=== PATIENT | male | born 1970 | race Caucasian/White ===

== ENCOUNTER → 2020-04-02 08:32 | Outpatient (CLI) | payer OTHER, SELFPAY ==
[2020-04-02 10:35] LABS: ALB/GLOB Ratio 1.1 RATIO (0.9-2.4); AST(SGOT) 16 U/L (15-37); Alanine Aminotransfer ALT/SGPT 30 U/L (16-61); Albumin, Serum 3.8 g/dL (3.2-5.0); Alkaline Phosphatase 70 U/L (45-117); Anion Gap 5 (5-15); BUN 12 mg/dL (7-18); BUN/Creat Ratio 14.3 RATIO (10-20); Calcium,Total 8.5 mg/dL (8.5-10.1); Chloride 108 mmol/L (98-107); Creatinine, Serum 0.84 mg/dL (0.70-1.30); EST Glomerular Filtration Rate 103 mL/min (>60); Est Glom Filt Rate - Afr Amer 125 mL/min (>60); Globulin 3.5 g/dL (2.2-4.2); Glucose 91 mg/dL (74-106); Potassium 3.6 mmol/L (3.5-5.1); Protein, Total 7.3 g/dL (6.4-8.2); Sodium Level 140 mmol/L (136-145); Thyroid Stim Hormone (TSH) 0.97 uIU/mL (0.358-3.74)
[2020-04-02 10:38] LABS: Erythrocyte Sedimentation Rate 6 mm/hr (0-15)
[2020-04-02 10:41] LABS: Absolute Lymphocyte Count 1.13 X10^3/uL (0.83-4.51); Absolute Neutrophil Count 7.2 X10^3/uL (2.0-7.7); Basophil# 0.07 X10^3/uL; Basophil% 0.8 % (0-1); Eosinophil# 0.08 X10^3/uL; Eosinophils% 0.9 % (0-5); Hematocrit 46.6 % (40-54); Hemoglobin 15.1 g/dL (13.0-16.5); Lymphocyte # 1.13 X10^3/ul (4.0); Lymphocyte % 12.2 % (19-41); Mean Corp Hgb Conc 32.4 g/dL (32-36); Mean Corpuscular Hgb 30.6 pg (27.0-32.0); Mean Corpuscular Volume 94.5 fL (80-94); Mean Platelet Vol. 9.2 fl (6.2-12.0); Monocyte# 0.78 X10^3/uL; Monocyte% 8.4 % (0-10); NRBC Flagged by Analyzer 0 % (0-5); Neutrophil # 7.19 X10^3/uL (2.7-7.7); Neutrophil % 77.3 % (47-70); Platelet Count 370 K/mm3 (150-450); RBC Distribution Width CV 12.9 % (11.6-14.6); RBC Distribution Width SD 44.8 fl (35.1-43.9); Red Blood Count 4.93 M/mm3 (4.6-6.2); White Blood Count 9.3 K/mm3 (4.4-11.0)
[2020-04-02 11:28] LABS: Vitamin D,25 Hydroxy 15.1 ng/mL
== END ==
PROVIDERS: PCP Family Medicine; Referring Provider Family Medicine; Visit Provider Family Medicine
DX: R45.86 Emotional lability (principal)
CPT/HCPCS: 36415; 80053; 82306; 84443; 85025; 85652

== ENCOUNTER 2020-10-30 12:53 | Emergency (ER) | payer OTHER, SELFPAY ==
[2020-10-30 12:55] VITALS: BP 125/71; PULSE 88; RESP 18; TEMP 36.6; O2SAT 97; BMI 23.6
--- NOTE | 2020-10-30 13:42 | RAD_ITS ---
STUDY: X-RAY CHEST REASON FOR EXAM: Male, 50 years old. MENTAL HEALTH TECHNIQUE: Single AP portable view of the chest. COMPARISON: None. FINDINGS: There is hyperinflation of the lungs consistent with chronic obstructive lung disease (COPD). Scattered calcified granulomas. There is no demonstrated pleural abnormality. Normal size heart. Normal mediastinum and johnny. Normal visualized pulmonary arteries. Normal visualized aortic arch and descending thoracic aorta. Normal visualized thoracic spine. There has been resection of the anterior aspect of the left sixth rib anterolaterally. There is no demonstrated abnormality of the visualized soft tissue structures of the upper abdomen. RAD/Chest 1 View (Portable) IMPRESSION: Hyperinflation. Findings suggestive of resection of the anterior lateral portion of the left sixth rib. Electronically Signed: Raffi Small MD at 14:06 EDT , Service support ,
--- NOTE | 2020-10-30 13:57 | EKG12_ITS ---
Test Reason : MENTAL CLEARANCE Blood Pressure : / mmHG Vent. Rate : 056 BPM Atrial Rate : 056 BPM P-R Int : 122 ms QRS Dur : 088 ms QT Int : 434 ms P-R-T Axes : 056 053 059 degrees QTc Int : 418 ms Sinus bradycardia Otherwise normal ECG Confirmed by ALFREDO VAUGHN, LISSETTE ([id number]), index editor ALISA FARIA ([id number]) on 11/03/2020 9:43:42 AM Referred By: KEVON Confirmed By:HAIM FUENTES MD
[2020-10-30 14:51] LABS: Bacteria 0 SEEN /hpf (None Seen); Mucous, Urine 0 SEEN /hpf (<or=2+); Squamous Epithelial Cells - UA 0 SEEN /hpf (0-5); White Blood Cells 0 SEEN /hpf (0-5)
[2020-10-30 14:54] LABS: Color, Urine Yellow (Yellow); Glucose, Dipstick Normal (Normal); Ketone-Dipstick Negative (Negative); Leukocyte Esterase-Dipstick Negative /ul (Negative); Nitrite-Dipstick Negative (Negative); Occult Blood-Urine 25 /ul (Negative); Protein-Dipstick Negative (Negative); Specific Gravity, Urine 1.015 (1.002-1.030); Urine Bilirubin Dipstick Negative (Negative); Urine Clarity Clear (Clear); Urine Urobilinogen Normal (Normal)
[2020-10-30 15:05] LABS: Amphetamine Urine VISTA NEGATIVE (<1000 ng/mL); Barbiturate Urine VISTA NEGATIVE (< 200 ng/mL); Benzodiazepine Urine VISTA NEGATIVE (< 200 ng/mL); Cocaine Urine VISTA NEGATIVE (< 300 ng/mL); Ecstacy Urine VISTA NEGATIVE (< 500 ng/mL); Methadone Urine VISTA NEGATIVE (< 300 ng/mL); PCP Urine VISTA NEGATIVE (< 25 ng/mL); THC Urine VISTA NEGATIVE (< 50 ng/mL); Vista UDS pH Range 6
[2020-10-30 15:06] LABS: Red Blood Cells-Urine 0-5 SEEN /hpf (0-5)
[2020-10-30 15:16] LABS: Absolute Lymphocyte Count 1.02 X10^3/uL (0.83-4.51); Absolute Neutrophil Count 7.7 X10^3/uL (2.0-7.7); Basophil# 0.05 X10^3/uL; Basophil% 0.5 % (0-1); Eosinophil# 0.08 X10^3/uL; Eosinophils% 0.8 % (0-5); Hematocrit 43.8 % (40-54); Hemoglobin 14.2 g/dL (13.0-16.5); Lymphocyte # 1.02 X10^3/ul (0.83-4.51); Lymphocyte % 10.8 % (19-41); Mean Corp Hgb Conc 32.4 g/dL (32-36); Mean Corpuscular Hgb 29.6 pg (27.0-32.0); Mean Corpuscular Volume 91.3 fL (80-94); Mean Platelet Vol. 8.5 fl (6.2-12.0); Monocyte% 6.3 % (0-10); NRBC Flagged by Analyzer 0 % (0-5); Neutrophil % 81.3 % (47-70); Platelet Count 295 K/mm3 (150-450); RBC Distribution Width CV 12.4 % (11.6-14.6); RBC Distribution Width SD 41.6 fl (35.1-43.9); White Blood Count 9.5 K/mm3 (4.4-11.0)
--- NOTE | 2020-10-30 15:17 | EX.ED.DYSGE1 ---
HPI History of Present Illness Chief Complaint: Suicidal Detail of Chief Complaint: Depression Informant: patient and family Onset/Context/Timing Onset: Month(s) Context: Gradual Onset Timing: Continuous Current Severity: Mild Maximum Severity: Mild Narrative Narrative: 50-year-old gentleman history of bipolar disorder. Seeing a psychiatrist as an outpatient. He is currently on psychiatric medication states he is taken him with her not helping him. He is really started having problems since last February. It is progressively getting worse. Reportedly there is a lot of outside stressors on the patient. He is worried about keeping his job. He has never had a prior admission for this. He says he has thought of suicide but he has no plan and he has had no prior attempt before. Patient does not want to be admitted. Prior similar symptoms: Yes Recent Illness/Hospitalization: No PFSH PFS Medical History Anxiety Bipolar disorder Depression Home Medications escitalopram oxalate 10 mg PO DAILY 10/30/20 [History Last Taken Unknown] olanzapine 20 mg PO QHS 10/30/20 [History Last Taken Unknown] Allergy/AdvReac Type Severity Reaction Status Date / Time No Known Allergies Allergy Verified 10/30/20 12:55 Social History Smoking Status: Current every day smoker tobacco type: cigarettes ROS ROS ED ROS Narrative Patient denies any recent illness. Review of Systems ROS Unobtainable: Denies due to encephalopathy Constitutional Constitutional ED: Reports difficulty sleeping Eyes Eyes: Denies blindness ENT ENT ED: Denies bleeding gums Cardiovascular Cardiovascular: Denies abdominal pain Respiratory/Chest Respiratory/Chest: Denies chest congestion or cough Gastrointestinal Gastrointestinal: Denies dry heaves or dysphagia Genitourinary Genitourinary ED: Denies burning urination Musculoskeletal Musculoskeletal: Denies difficulty walking or extremity pain Integumentary Denies bleeding lesions or jaundice Neurologic Neurologic: Denies dizziness Psychiatric Psychiatric: Reports as per HPI, abnormal sleep pattern, anxiety, depression, difficulty concentrating and suicidal thoughts; Denies auditory hallucinations or hallucinations Endocrine Endocrinology: Denies excessive sweating, fatigue or flushing Hematologic/Lymphatic Hematologic/Lymphatic: Denies anemia Allergic/Immunologic Allergic/Immunologic ED: Denies lip swelling or mouth swelling EXAM Physical Exam Narrative Exam Narrative: Middle-age male. Vital signs stable afebrile. No distress. Normal exam. No smell of alcohol no signs of toxidrome. Currently is awake alert calm and cooperative. Exam is normal. He is medically cleared. Const Vital Signs: 10/30/20 12:55 10/30/20 16:00 10/30/20 17:00 Temperature 97.9 F Temperature Source Temporal Pulse Rate 88 Respiratory Rate 18 16 16 Blood Pressure 125/71 H Blood Pressure Mean 89 Pulse Ox 97 Oxygen Delivery Method Room Air Positive well nourished, well developed, alert, oriented x3 and no apparent distress; Negative for unkempt General Appearance ED: active, cooperative, comfortable and well developed; Negative for unkempt HEENT Reports normocephalic, head/scalp atraumatic and moist mucous membranes normocephalic, normal to inspection and atraumatic Eyes PERRL, EOMs intact bilaterally, conjunctivae normal and no scleral icterus Neck full ROM, no lymphadenopathy, supple, no meningeal signs and no JVD Chest Wall inspection of chest normal and palpation of chest normal Resp normal respiratory effort, normal air movement, no retractions, no use of accessory muscles and clear to auscultation bilaterally Cardio regular rate, regular rhythm, S1 normal heart sound, S2 normal heart sound, no murmurs, no rub, no gallops, no clicks and no JVD GI normal to inspection, nondistended, normoactive bowel sounds, soft to palpation, non-tender, non-distended and no masses Back/Spine no CVA tenderness Extremity normal to inspection, full ROM, normal capillary refill, no joint enlargement, no calf tenderness and no pedal edema Neuro oriented x3, CN's II-XII intact bilaterally, moves all extremities and no focal motor deficits Psych mental status grossly normal, thought process normal, cooperative, affect normal, speech normal, activity/motor behavior normal and denies hallucinations Appearance: grossly normal, appropriate and well kempt; Negative for unkempt Attitude: calm and engaged MDM MDM MDM Narrative Medical decision making narrative: Middle-age male history of bipolar disorder worsening depression in spite of meds. Having suicidal thoughts but no prior attempt for plan. Patient will be evaluated by our social welfare research worker. She and I will discuss a plan. He is medically cleared. Patient discussion with the social welfare research worker and family has been a self admit himself to no additional psychiatric facility. He is medically cleared. Lab Data Attestation: I reviewed the patient's lab results. Lab results narrative: White count normal at 9 hemoglobin 14. UA negative. Tox screen negative. Electrolytes normal. Glucose 183. UA negative. Labs: Laboratory Results - last 24 hr 10/30/20 10/30/20 10/30/20 13:19 13:19 14:50 WBC 9.5 RBC 4.80 Hgb 14.2 Hct 43.8 MCV 91.3 MCH 29.6 MCHC 32.4 RDW Std Deviation 41.6 RDW Coeff of Liu 12.4 Plt Count 295 MPV 8.5 Immature Gran % (Auto) 0.300 Neut % (Auto) 81.3 H Lymph % (Auto) 10.8 L [place]oke % (Auto) 6.3 Eos % (Auto) 0.8 Baso % (Auto) 0.5 Absolute Neuts (auto) 7.7 Absolute Lymphs (auto) 1.02 Nucleated RBC % 0 Sodium Potassium Chloride Carbon Dioxide Anion Gap BUN Creatinine Estim Creat Clear Calc Est GFR (MDRD) Af Amer Est GFR (MDRD) Non-Af BUN/Creatinine Ratio Glucose Calcium Urine Color Yellow Urine Clarity Clear Urine pH 7.0 Ur Specific [place] 1.015 Urine Protein Negative Urine Glucose (UA) Normal Urine Ketones Negative Urine Occult Blood 25 H Urine Nitrite Negative Urine Bilirubin Negative Urine Urobilinogen Normal Ur Leukocyte Esterase Negative Urine RBC 0-5 SEEN Urine WBC 0 SEEN Ur Squamous Epith Cells 0 SEEN Urine Bacteria 0 SEEN Urine Mucus 0 SEEN Urine Opiates Screen NEGATIVE Urine Methadone Screen NEGATIVE Ur Barbiturates Screen NEGATIVE Ur Phencyclidine Scrn NEGATIVE Ur Amphetamines Screen NEGATIVE U Methamphetamin-MDMA NEGATIVE U Benzodiazepines Scrn NEGATIVE Urine Cocaine Screen NEGATIVE U Cannabinoids Screen NEGATIVE Ur Drug Screen Comment Ethyl Alcohol 10/30/20 10/30/20 14:50 14:50 WBC RBC Hgb Hct MCV MCH MCHC RDW Std Deviation RDW Coeff of Liu Plt Count MPV Immature Gran % (Auto) Neut % (Auto) Lymph % (Auto) Cooke % (Auto) Eos % (Auto) Baso % (Auto) Absolute Neuts (auto) Absolute Lymphs (auto) Nucleated RBC % Sodium 138 Potassium 3.6 Chloride 104 Carbon Dioxide 26.0 Anion Gap 8 BUN 14 Creatinine 0.95 Estim Creat Clear Calc 93.03 Est GFR (MDRD) Af Amer 107 Est GFR (MDRD) Non-Af 89 BUN/Creatinine Ratio 14.7 Glucose 183 H Calcium 8.9 Urine Color Urine Clarity Urine pH Ur Specific [place] Urine Protein Urine Glucose (UA) Urine Ketones Urine Occult Blood Urine Nitrite Urine Bilirubin Urine Urobilinogen Ur Leukocyte Esterase Urine RBC Urine WBC Ur Squamous Epith Cells Urine Bacteria Urine Mucus Urine Opiates Screen Urine Methadone Screen Ur Barbiturates Screen Ur Phencyclidine Scrn Ur Amphetamines Screen U Methamphetamin-MDMA U Benzodiazepines Scrn Urine Cocaine Screen U Cannabinoids Screen Ur Drug Screen Comment Ethyl Alcohol < 3.0 Radiography Chest X-Ray - ED: 1 View, Read by ED Physician, Read by Radiologist, Heart, Lungs, Mediastinum, Bony Structures, No Acute Disease and Chronic Changes Diagnostic Testing: Radiology Impression Chest X-Ray 10/30/20 13:42 IMPRESSION: Hyperinflation. Findings suggestive of resection of the anterior lateral portion of the left sixth rib. Electronically Signed: Raffi Small MD at 14:06 EDT , Service support , Reviewed chest x-ray that was ordered by nursing. No acute abnormality. Portable 1 view. Normal cardiac silhouette and Discharge Plan Triage Chief Complaint: Suicidal Other Complaint: Mental Health ED Provider: Chetan Blanton Dx/Rx/DC Orders Clinical Impression: Depression, Suicidal ideation, Bipolar disorder Instructions: ED Bipolar Disorder Prescriptions: No Action olanzapine 20 mg Tablet 20 mg PO QHS RF: 0 escitalopram oxalate 10 mg Tablet 10 mg PO DAILY RF: 0 Primary Care Provider: Zurdo Phillips Referrals: Zurdo Phillips MD [Primary Care Provider] - As Needed Activity Restrictions/Additional Instructions: Follow-up with the psychiatric hospital for admission. Disposition Disposition: Psychiatric Hospital or Unit
[2020-10-30 15:37] LABS: Anion Gap 8 (5-15); BUN 14 mg/dL (7-18); BUN/Creat Ratio 14.7 RATIO (10-20); Calcium,Total 8.9 mg/dL (8.5-10.1); Chloride 104 mmol/L (98-107); Creatinine, Serum 0.95 mg/dL (0.70-1.30); EST Glomerular Filtration Rate 89 mL/min (>60); Est Glom Filt Rate - Afr Amer 107 mL/min (>60); Estimated Creatinine Clearance 93.03 ml/min; Glucose 183 mg/dL (74-106); Potassium 3.6 mmol/L (3.5-5.1); Sodium Level 138 mmol/L (136-145)
[2020-10-30 15:41] LABS: Alcohol, Blood (Medical)-Serum < 3.0 mg/dL
[2020-10-30 16:00] VITALS: RESP 16
[2020-10-30] MEDS: LORazepam 1 MG Tablet PO (16:36)
[2020-10-30 17:00] VITALS: RESP 16
[2020-10-30 17:28] VITALS: BP 120/70; PULSE 80; RESP 16; O2SAT 99
--- NOTE | 2020-10-30 17:30 | ED.RN ---
SELF TRANSPORTING FOR VOLUNTARY ADMISSION TO [facility].
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
--- NOTE | 2020-10-31 10:54 | CM.ED ---
Addendum entered by Soo Zhou 10/31/20 14:52: Spoke with Shanique at [facility]. Per Shanique, patient's appointment is 11/10/20 and does not have an earlier appointment date for patient. Patient has been added to the cancellation list. Original Note: SOCIAL WORK Follow up phone call made. Patient self-admitted to [facility] last evening. Per patient and 's request, call to [facility] to follow up regarding counseling services and patient's ER visit. Left message with this worker's call back information. Awaiting call back at this time. Sheron Zhou, NETWORK OPERATIONS CENTER ENGINEER, VP ACCOUNT DIRECTOR
== END 2020-10-30 17:31 ==
PROVIDERS: Emergency Provider Emergency Medicine; PCP Family Medicine
DX: R45.851 Suicidal ideations (principal); F31.9 Bipolar disorder, unspecified; F41.9 Anxiety disorder, unspecified; Z79.899 Other long term (current) drug therapy; F17.210 Nicotine dependence, cigarettes, uncomplicated
CPT/HCPCS: 36415; 71045; 80048; 80307; 81001; 82077; 85025; 87426; 93005; 99283

== ENCOUNTER → 2021-01-01 14:18 | Outpatient (CLI) | payer OTHER, SELFPAY ==
--- NOTE | 2021-01-01 14:21 | RAD_ITS ---
STUDY: X-RAY - CERVICAL SPINE REASON FOR EXAM: Male, 50 years old. NECK PAIN TECHNIQUE: 6 view(s) of the cervical spine were obtained. COMPARISON: None FINDINGS: Normal anterior atlantoaxial articulation. The odontoid process is obscured by the overlying hard palate on the open mouth view. Therefore, it is not fully evaluated by plain film. No movement on the flexion or extension views. There is straightening of the normal cervical lordosis. There is C4-5 and C5-6 endplate spondylosis. There is C4-5 and C5-6 degenerative disc disease with multilevel disc space narrowing. Normal visualized intervertebral neuroforamina. The soft tissue structures are unremarkable. RAD/Cerv Spine Obl/Flex/Ext Comp IMPRESSION: The odontoid process is obscured by the overlying hard palate on the open mouth view. Therefore, it is not fully evaluated by plain film. There is mild straightening of the normal cervical lordosis. This can suggest neck strain. Electronically Signed: Beto Hernandez MD at 13:40 EDT , Service support ,
--- NOTE | 2021-01-01 14:21 | RAD_ITS ---
STUDY: XR Shoulder Min 2 Views REASON FOR EXAM: Male, 50 years old. PAIN TECHNIQUE: XR Shoulder Min 2 Views COMPARISON: None. FINDINGS: Normal glenohumeral articulation. Normal acromioclavicular joint. Normal acromion. Normal humeral head and visualized proximal humerus. The soft tissue structures are unremarkable. Normal visualized pulmonary apex. RAD/Shoulder min 2 Views IMPRESSION: There are no acute findings of the shoulder. Electronically Signed: Beto Hernandez MD at 10:14 EDT , Service support ,
== END ==
PROVIDERS: PCP Family Medicine; Referring Provider Family Medicine; Visit Provider Family Medicine
DX: M25.511 Pain in right shoulder (principal); M54.2 Cervicalgia
CPT/HCPCS: 72052; 73030

== ENCOUNTER → 2024-07-02 | Outpatient (CLI) | payer OTHER, SELFPAY ==
--- NOTE | 2024-07-02 14:39 | RAD_ITS ---
PROCEDURE: HIPS B/L MIN 2 VIEWS W/ PELVIS 07/02/2024 REASON FOR EXAM: L HIP PAIN TECHNIQUE: 2 views of each hip. AP Pelvis. COMPARISON: None. FINDINGS: Pelvic rim is unremarkable. No fracture is identified. RIGHT HIP: No acute fracture. Normal alignment. Soft tissues are unremarkable. LEFT HIP: No acute fracture. Normal alignment. Soft tissues are unremarkable. RAD/Hips B/L min 2 views w/ Pelvis IMPRESSION: NEGATIVE BILATERAL HIP SERIES. Reading Location: [facility]
--- NOTE | 2024-07-02 14:39 | RAD_ITS ---
PROCEDURE: LUMBAR SPINE 2 OR 3 VIEWS 07/02/2024 REASON FOR EXAM: L HIP PAIN TECHNIQUE: 3 view(s) of the lumbar spine FINDINGS: No findings of acute lumbar spine fracture. There is degenerative disc disease most notable at L3-L4 at L5-S1. 2 mm retrolisthesis of L3-L4. If persistent concern, consider lumbar spine MRI RAD/Lumbar Spine 2 or 3 Views IMPRESSION: Multilevel degenerative disc disease. If persistent concern, consider lumbar s pine MRI Reading Location: [id number]
[2024-07-02 18:08] LABS: Hematocrit 44.7 % (40-54); Hemoglobin 14.9 g/dL (13.0-16.5); Mean Corp Hgb Conc 33.3 g/dL (32-36); Mean Corpuscular Hgb 30.8 pg (27.0-32.0); Mean Corpuscular Volume 92.4 fL (80-94); Mean Platelet Vol. 9.4 fl (6.2-12.0); Platelet Count 338 K/mm3 (150-450); RBC Distribution Width CV 13.7 % (11.6-14.6); RBC Distribution Width SD 46.8 fl (35.1-43.9); Red Blood Count 4.84 M/mm3 (4.6-6.2); White Blood Count 10.8 K/mm3 (4.4-11.0)
[2024-07-02 18:44] LABS: ALB/GLOB Ratio 1.5 RATIO (0.9-2.4); AST(SGOT) 27 U/L (<=37); Alanine Aminotransfer ALT/SGPT 39 U/L (<=46); Albumin, Serum 4.5 g/dL (3.5-5.0); Alkaline Phosphatase 79 U/L (40-129); Anion Gap 14 (5-15); BUN 13 mg/dL (4-19); BUN/Creat Ratio 15.6 RATIO (10-20); Calcium,Total 9.3 mg/dL (7.6-11.0); Carbon Dioxide 22.2 mmol/L (21.0-32.0); Chloride 102 mmol/L (98-108); Cholesterol 265 mg/dL (<=200); Creatinine, Serum 0.83 mg/dL (0.70-1.20); EST Glomerular Filtration Rate 105 (>60); Glucose 96 mg/dL (70-99); High Density Lipoprotein 51 mg/dL; Low Density Lipoprotein Calc. 160 mg/dL; PSA,Total - Annual Screen 0.68 ng/mL (0.02-4.00); Potassium 3.9 mmol/L (3.3-5.1); Protein, Total 7.5 g/dL (5.9-8.4); Sodium Level 138 mmol/L (133-145); Triglycerides 270 mg/dL; Very Low Density Lipoprotein 54 mg/dL (5-40)
== END | disposition home or self-care (01) ==
LOC: MTLAB 14:39
PROVIDERS: PCP Family Medicine; Referring Provider Family Medicine; Visit Provider Family Medicine
DX: M54.40 Lumbago with sciatica, unspecified side (principal); F31.10 Bipolar disorder, current episode manic without psychotic features, unspecified; M25.552 Pain in left hip; Z12.5 Encounter for screening for malignant neoplasm of prostate; Z13.220 Encounter for screening for lipoid disorders
CPT/HCPCS: 36415; 72100; 73521; 80053; 80061; 84153; 84443; 85027; G0103